=== PATIENT | female | born 1935 | race Caucasian/White ===

== ENCOUNTER 2018-10-08 12:59 | Outpatient (CLI) | payer MEDICARE ==
--- NOTE | 2018-10-08 14:54 | ULT ---
BILATERAL CAROTID DUPLEX ULTRASOUND: DATE: 10/08/18 HISTORY: Bilateral carotid bruits. TECHNIQUE: Arriaga scale ultrasound with color flow and spectral Doppler imaging of the extracranial carotid artery systems performed bilaterally. FINDINGS: There is plaque formation in the carotid bulbs and bifurcations. The peak systolic velocity in the right ICA measures 95 cm/second with an end-diastolic velocity of 2 7 cm/second and a systolic ratio of 0.82. The peak systolic velocity in the left ICA measures 75 cm/second with an end-diastolic velocity of 23 cm/second and a systolic ratio of 0.63. Flow in both vertebral arteries remains antegrade. IMPRESSION: No evidence of hemodynamically significant stenosis. POS: [facility]
== END 2018-10-08 13:00 | disposition home or self-care (01) ==
LOC: BICULT 12:59
PROVIDERS: ATTEND Family Medicine
DX: R09.89 Other specified symptoms and signs involving the circulatory and respiratory systems (principal)
CPT/HCPCS: 93880

== ENCOUNTER 2019-05-09 07:52 | Outpatient (CLI) | payer MEDICARE ==
--- NOTE | 2019-05-09 08:46 | MMO ---
Bilateral MAMMO Bilat Screen [facility]. CLINICAL HISTORY: Patient is 83 years old and is seen for screening. The patient has no family history of breast cancer. The patient has no personal history of cancer. VIEWS: The views performed were: bilateral craniocaudal with tomosynthesis and bilateral mediolateral oblique with tomosynthesis. FILMS COMPARED: The present examination has been compared to prior imaging studies performed at [facility] on 05/11/2013, 06/05/2014, 08/27/2015 and 09/12/2016. MAMMOGRAM FINDINGS: There are scattered fibroglandular densities. There are stable benign appearing calcifications seen in both breasts. There are no suspicious masses, suspicious calcifications, or new areas of architectural distortion. IMPRESSION: THERE IS NO MAMMOGRAPHIC EVIDENCE OF MALIGNANCY. A ROUTINE FOLLOW-UP MAMMOGRAM IN 1 YEAR IS RECOMMENDED. THE RESULTS OF THIS EXAM WERE SENT TO THE PATIENT. ACR BI-RADS Category 2 - Benign finding MAMMOGRAPHY NOTE: 1. A negative mammogram report should not delay a biopsy if a dominant of clinically suspicious mass is present. 2. Approximately 10% to 15% of breast cancers are not detected by mammography. 3. Adenosis and dense breasts may obscure an underlying neoplasm.
--- NOTE | 2019-05-09 10:12 | BD ---
DEXA BONE MINERAL DENSITY STUDY: HISTORY: Osteoporosis screening. COMPARISON: DEXA exam from 05/04/2017. FINDINGS: Lumbar Spine: BMD (g/cm2) L1 0.934 T-Score: -0.5 1.9 L2 0.883 T-Score: -1.3 1.4 L3 0.930 T-Score: -1.4 1.4 L4 0.940 T-Score: -1.1 1.8 L1-L4 0.923 T-Score: -1.1 1.6 WHO classification osteopenia. Change from the comparison examination is +16.2%. Femoral Neck: 0.592 T-Score: -2.3 0.0 Total Femur: 0.941 T-Score: -0.0 2.1 Change from the comparison examination is +18.9% Of note, they are dissimilar scan types for analysi s from the prior exam. TEN-YEAR FRACTURE RISK: Major osteoporotic fracture 17% and hip fracture 5.6%. Impression: Osteopenia with elevated fracture risk. POS: [facility]
== END 2019-05-09 07:53 | disposition home or self-care (01) ==
LOC: BICMAMMO 07:52
PROVIDERS: ATTEND Family Medicine
DX: Z12.31 Encounter for screening mammogram for malignant neoplasm of breast (principal); Z13.820 Encounter for screening for osteoporosis; M85.89 Other specified disorders of bone density and structure, multiple sites
CPT/HCPCS: 77063; 77067; 77080

== ENCOUNTER 2019-07-11 20:54 | Emergency (ER) | payer MEDICARE ==
[2019-07-11 23:45] LABS: #Basophils 0.1 thou/uL (0.0-0.2); #Eosinphils 0.3 thou/uL (0.0-0.7); #Lymphocytes 3.5 thou/uL (1.20-3.40); #Monocytes 0.7 thou/uL (0.11-0.59); #Neutrophils 6.4 thou/uL (1.40-6.50); %Basophils 0.5 % (0.0-1.0); %Eosinophils 2.5 % (0.0-10.0); %Lymphocytes 31.9 % (21.0-51.0); %Monocytes 6.3 % (0.0-10.0); %Neutrophils 58.9 % (42.0-75.0); Hemoglobin 12.6 g/dL (12.0-16.0); Mean Corpuscular HGB CONC 33.6 g/dL (32.0-36.0); Mean Corpuscular Hemoglobin 31.6 pg (27.0-31.0); Mean Corpuscular Volume 94.2 fL (78.0-98.0); Mean Platelet Volume 7.8 fL (7.4-10.4); Platelet Count 212 thou/uL (130-400); RBC Distribution Width 12.6 % (11.5-14.5); Red Blood Cell (RBC) Count 3.98 mill/uL (4.20-5.40); White Blood Cell (WBC) Count 10.9 thou/uL (4.8-10.8)
[2019-07-11 23:57] LABS: ALT (SGPT) 13 U/L (8-55); AST (SGOT) 16 U/L (5-34); Alkaline Phosphatase 102 U/L (40-150); Anion Gap 14 mmol/L (10-20); BUN (Urea Nitrogen) 26 mg/dL (9.8-20.1); Bilirubin, Total 0.2 mg/dL (0.2-1.2); Calc. Creatinine Clearance 0 mL/min (70-130); Calcium 9.5 mg/dL (7.8-10.44); Carbon Dioxide 26 mmol/L (23-31); Chloride 103 mmol/L (98-107); Estimated GFR-MDRD 62; Globulin 2.7 g/dL (2.4-3.5); Glucose 100 mg/dL (83-110); Potassium 4.3 mmol/L (3.5-5.1); Protein, Total 6.7 g/dL (6.0-8.3); Sodium 139 mmol/L (136-145)
[2019-07-12] MEDS ORDERED: predniSONE 20 MG TAB ONE (03:34)
--- NOTE | 2019-07-12 07:57 | CT ---
PRELIMINARY REPORT/[facility]/EMERGENCY AFTER HOURS PROCEDURE: EXAM: CT Angiography Neck With Contrast EXAM DATE/TIME: 07/12/2019 2:50 AM CLINICAL HISTORY: 83 years old, female; Other: Neck pain; Patient HX: 83 yo F with no pmh presents for left nerve jaw p ain. Started 10 days ago, sharp/shooting, starting in left jaw radiates to chin and up to ear. Went t o urgent care a few days ago, disagnosed with trigeminal neuralgia and sent home w/ gabapentin & ibup rofen. Yesterday evening re-experienced pain but radiated down to neck, prompting visit. Denies MORRIS, v ision changes, neurologic changes, pain with chewing TECHNIQUE: Imaging protocol: Axial computed tomographic angiography images of the neck with intravenous contrast using CT angiography protocol. Coronal and sagittal reformatted images were created and reviewed. 3D rendering: MIP reconstructed images were created and reviewed. COMPARISON: No relevant prior studies available. FINDINGS: VASCULATURE: Right common carotid artery: Unremarkable. No stenosis. No dissection or occlusion. Right internal carotid artery: There is mild atherosclerotic calcification at the RIGHT carotid bulb resulting in mild stenosis at the origin of the RIGHT internal carotid artery. Right external carotid artery: Unremarkable. No occlusion or stenosis of the origin. Right vertebral artery: Unremarkable. No stenosis. No dissection or occlusion. Left common carotid artery: Unremarkable. No stenosis. No dissection or occlusion. Left internal carotid artery: There is mild atherosclerotic calcification at the LEFT carotid bulb re sulting in mild stenosis at the origin of the LEFT internal carotid artery. Left external carotid artery: Unremarkable. No occlusion or stenosis of the origin. Left vertebral artery: Unremarkable. No stenosis. No dissection or occlusion. NECK: Bones/joints: No acute fracture. Soft tissues: Normal. No significant soft tissue swelling. Dental: There is large periapical cyst involving the third left mandibular molar. IMPRESSION: There is large periapical cyst involving the third left mandibular molar. Correlate for dental diseas e. COMMENT: Reference per NASCET criteria for degree of stenosis: Mild: less than 50% stenosis. Moderate: 50-69% stenosis. Severe: 70-94% stenosis. Near occlusion: 95-99% stenosis. Thank you for allowing us to participate in the care of your patient. Dictated and Authenticated by: Isidoro Kapoor MD 07/12/2019 3:40 AM Central Time ([place] & [place]) FINAL REPORT CT ANGIOGRAM OF NECK: Date: 07/12/19 HISTORY: Left nerve jaw pain, started 10 days ago. Sharp, shooting pain. COMPARISON: None. TECHNIQUE: CT angiogram of the neck is performed in the axial plane. Three-dimensional reformatted images are mays bmitted for interpretation. FINDINGS: Visualized brain parenchyma and orbits are unremarkable. Bilateral ocular lens implants are noted. Ad equate aeration of the sinuses and mastoid air cells. Limited evaluation of the oral cavity due to dental amalgam artifact. Midline fatty raphe of the tong ue is preserved. No obvious masses in the oral cavity. Aerodigestive tract appears to be patent. Symmetric attenuation of the salivary glands. Unremarkable sternocleidomastoid muscles. Hypodensity i n the left thyroid lobe, measuring 0.6 cm. No evidence of lymphadenopathy by size criteria. Upper normal left Level II lymph nodes are noted. Re presentative lymph node measures 1.1 x 0.5 cm. Varying degrees of central canal stenosis and neural foraminal narrowing on the basis of degenerative change. CT ANGIOGRAM: The visualized aortic arch has appropriate enhancement and luminal diameter. The right carotid has ap propriate enhancement and luminal diameter. No significant stenosis based upon NASCET criteria. Calci fied plaque is noted in the right carotid bifurcation. Left Carotid: The left carotid artery origin has appropriate enhancement and luminal diameter. No si gnificant stenosis based upon NASCET criteria with regards to the left carotid artery. Visualized cervical vertebral arteries are patent throughout their course in the neck. There is adequ ate luminal diameter of the visualized subclavian arteries. Atherosclerosis of both cavernous carotid arteries is noted. There is a large periapical cyst involving the posterior most left molar tooth. Correlate for dental disease. IMPRESSION: 1. Unremarkable CT angiogram of neck. 2. Large left mandibular molar tooth periapical cyst. This report is in agreement with the preliminary report by [facility]. POS: [facility]
[2019-07-12] MEDS ORDERED: ISOVUE-370 76%-LOCM 1 ML ONE (10:46)
== END 2019-07-12 04:08 | disposition home or self-care (01) ==
LOC: ERS 20:54
DX: K04.8 Radicular cyst (principal); Z79.899 Other long term (current) drug therapy
CPT/HCPCS: 36415; 70498; 80053; 84484; 85025; 93005; J7512; Q9966